=== PATIENT | female | born 1985 | race Caucasian/White ===

== ENCOUNTER 2017-10-24 16:27 | Emergency (ER) | payer OTHER ==
--- NOTE | 2017-10-24 18:08 | RAD ---
Date of service: 10/24/2017 HISTORY: back pain COMPARISON: No prior. TECHNIQUE: Chest PA and lateral FINDINGS: LUNGS: No active pulmonary disease. PLEURA: No significant pleural effusion identified. No pneumothorax apparent. CARDIOVASCULAR: Normal. OSSEOUS STRUCTURES: No significant abnormalities. VISUALIZED UPPER ABDOMEN: Normal. OTHER FINDINGS: None. IMPRESSION: No active disease.
[2017-10-24 18:13] LABS: BASO % 0.6 % (0.0-2.0); EOS # 0.2 K/uL (0.0-0.7); EOS % 2.8 % (0.0-4.0); HEMOGLOBIN 12.7 g/dL (12.0-16.0); LYMPH % 24.4 % (20.0-40.0); MEAN CELL VOLUME 82.7 fl (81.0-99.0); MEAN CORPUSCULAR HEMOGLOBIN 27.9 pg (27.0-31.0); MEAN CORPUSCULAR HGB CONC 33.7 g/dL (33.0-37.0); MEAN PLATELET VOLUME 9.6 fl (7.2-11.7); MONO # 0.4 K/uL (0.0-0.8); MONO % 5.2 % (0.0-10.0); NEUT # 5.5 K/uL (1.8-7.0); NRBC % 0.1 % (0.0-0.0); RBC 4.55 Mil/uL (3.80-5.20); RED CELL DISTRIBUTION WIDTH 16.3 % (11.5-14.5); WHITE BLOOD COUNT 8.2 K/uL (4.8-10.8)
--- NOTE | 2017-10-24 18:18 | ED PDOC ---
HPI: Back Time Seen by Provider: 10/24/17 16:42 Chief Complaint (Nursing): Back Pain Chief Complaint (Provider): back pain History Per: Patient History/Exam Limitations: no limitations Onset/Duration Of Symptoms: Days Current Symptoms Are (Timing): Still Present Quality Of Discomfort: "Pain" Additional Complaint(s): 32 year old female presents to the ED for an evaluation of right upper back pain. The pain is constant and worse when she stands. It has been present for 3- 4 weeks. Otherwise: (-) paresthesias, (-) weakness, (-) acute bowel or bladder dysfunction, (-) fever, (-) cough, (-) SOB, (-) chest pain, (-) nausea, (-) vomiting, (-) abdominal pain, (-) trauma, (-) injury, (-) urinary symptoms, (-) travel. Patient admits that she is a smoker. PMD: Driss Puri Past Medical History Reviewed: Historical Data, Nursing Documentation, Vital Signs Vital Signs: Last Vital Signs Temp 98.5 F 10/24/17 16:37 Pulse 80 10/24/17 16:37 Resp 16 10/24/17 16:37 BP 120/83 10/24/17 16:37 Pulse Ox 98 10/24/17 16:37 - Medical History PMH: Back Problems - Family History Family History: States: No Known Family Hx - Social History Current smoker - smoking cessation education provided: Yes - Home Medications Home Medications: Ambulatory Orders Medication Instructions Recorded Cyclobenzaprine [Cyclobenzaprine 10 mg PO TID PRN #15 tab 10/24/17 HCl] Naproxen 500 mg PO BID PRN #20 tablet 10/24/17 - Allergies Allergies/Adverse Reactions: Allergies Allergy/AdvReac Type Severity Reaction Status Date / Time No Known Allergies Allergy Verified 10/24/17 16:43 Review of Systems ROS Statement: Except As Marked, All Systems Reviewed And Found Negative Constitutional: Negative for: Fever Respiratory: Negative for: Cough, Shortness of Breath Gastrointestinal: Negative for: Nausea, Vomiting, Abdominal Pain Genitourinary Female: Negative for: Dysuria, Frequency, Incontinence Musculoskeletal: Positive for: Back Pain Physical Exam - Reviewed Nursing Documentation Reviewed: Yes Vital Signs Reviewed: Yes - Physical Exam Comments: GENERAL APPEARANCE: Patient is awake, alert, oriented x 3, in mild painful distress. SKIN: Warm, dry; (-) cyanosis. EYES: (-) conjunctival pallor. ENMT: Mucous membranes moist. NECK: (-) tenderness, (-) stiffness, (-) lymphadenopathy. CHEST AND RESPIRATORY: (-) rales, (-) rhonchi, (-) wheezes; breath sounds equal bilaterally. HEART AND CARDIOVASCULAR: (-) irregularity; (-) murmur, (-) gallop. ABDOMEN AND GI: Soft; (-) tenderness; (-) palpable mass. BACK: (-) paravertebral tenderness, (+) mild spasm to the R upper back, (-) direct bony tenderness, (-) deformity. EXTREMITIES: (-) deformity. Distal pulses good bilaterally. NEURO AND PSYCH: Mental status as above. Intact sensation bilaterally; normal strength in extension of the knees, plantar and dorsiflexion of the toes. - Laboratory Results Result Diagrams: 10/24/17 17:54 10/24/17 17:54 - ECG O2 Sat by Pulse Oximetry: 98 (RA) Pulse Ox Interpretation: Normal Medical Decision Making Medical Decision Making: Time: 1725 Initial Impression: back pain Initial Plan: --EKG --CMP --Troponin I --ED Urine --CBC w/ Differential --D Dimer [COAG] --PTT [COAG] --Prothrombin Time --Chest Two Views (PA/LAT) --IV Insertion --Urinalysis Uhcg (-) UA (-) EKG: NSR at 62 bpm, (-) acute ST changes, as read by JESSICA. CXR : NAD, as read by JESSICA Labs reviewed and wnl : trop (-), bnp (-). Diagnostic results discussed with the patient in great detail. Diagnosis of muscle spasm discussed with the patient in great detail. On reevaluation, patient reports improvement of symptoms, denies any CP or SOB. On exam, patient remains awake alert and oriented 3 in no acute distress. Based on history, exam and diagnostic results plan will be for outpatient follow up. Advised to follow up with primary care physician in 1-2 days without fail. Advised to take medication as prescribed. Return to the emergency room at any time for any new or worsening symptoms. Patient states she fully agrees with and understands discharge instructions. States that she agrees with the plan and disposition. Verbalized and repeated discharge instructions and plan. I have given the patient opportunity to ask any additional questions. Scribe Attestation: Documented by Linda Sotomayor, acting as a scribe for Kellie Velez PA-C Provider Scribe Attestation: All medical record entries made by the Scribe were at my direction and personally dictated by me. I have reviewed the chart and agree that the record accurately reflects my personal performance of the history, physical exam, medical decision making, and the department course for this patient. I have also personally directed, reviewed, and agree with the discharge instructions and disposition. Disposition - Clinical Impression Clinical Impression: Back pain - Patient ED Disposition Is Patient to be Admitted: No Counseled Patient/Family Regarding: Studies Performed, Diagnosis, Need For Followup, Rx Given - Disposition Disposition: Routine/Home Disposition Time: 19:00 Condition: STABLE Additional Instructions: Thank you for letting us take care of you today. You were treated for back pain. The emergency medical care you received today was directed at your acute symptoms. If you were prescribed any medication, please fill it and take as directed. It may take several days for your symptoms to resolve. Return to the Emergency Department if your symptoms worsen, do not improve, or if you have any other problems. Please contact your doctor in 2 days for re-evaluation and follow up. Bring any paperwork you were given at discharge with you along with any medications you are taking to your follow up visit. Our treatment cannot replace ongoing medical care by a primary care provider (PCP) outside of the emergency department. Thank you for allowing the [facility] team to be part of your care today. Prescriptions: Cyclobenzaprine [Cyclobenzaprine HCl] 10 mg PO TID PRN #15 tab PRN Reason: Muscle Spasm Naproxen 500 mg PO BID PRN #20 tablet PRN Reason: Pain, Moderate (4-7) Instructions: Upper Back Pain (DC) Forms: [employer] ([place])
[2017-10-24 18:34] LABS: ALB/GLOB RATIO 1.2 (1.0-2.1); ALBUMIN 4.9 g/dL (3.5-5.0); ALT/SGPT 19 U/L (9-52); AST/SGOT 24 U/L (14-36); BLOOD UREA NITROGEN 6 mg/dl (7-17); CALCIUM 9.4 mg/dL (8.4-10.2); GFR AFRICAN-AMERICAN > 60; GFR NON-AFRICAN AMERICAN > 60
[2017-10-24 18:35] LABS: INR 1.2 (0.9-1.2); PARTIAL THROMBOPLASTIN TIME 30.7 Seconds (25.6-37.1)
[2017-10-24 18:37] LABS: SQUAMOUS EPITHIAL 4 /hpf (0-5); URINE BILIRUBIN NEGATIVE (NEGATIVE); URINE BLOOD NEGATIVE (NEGATIVE); URINE CLARITY SLIGHTY-CLOUDY (Clear); URINE COLOR YELLOW (YELLOW); URINE GLUCOSE (UA) NEG (Normal); URINE LEUKOCYTE ESTERASE NEG Leu/uL (Negative); URINE PROTEIN NEGATIVE (NEGATIVE); URINE UROBILINOGEN 0.2-1.0 mg/dL (0.2-1.0)
[2017-10-24 19:31] VITALS: BP 128/72; PULSE 76; RESP 18; TEMP 98; O2SAT 99
--- NOTE | 2017-10-26 10:16 | CARD ---
APPROVED REPORT Date of service: 10/24/2017 EKG Measurement Heart [id number] <Conclusion> Normal sinus rhythm with sinus arrhythmia Normal ECG
== END 2017-10-24 19:32 | disposition home or self-care (01) ==
LOC: H.ER 16:27
DX: M54.9 Dorsalgia, unspecified (principal); F17.200 Nicotine dependence, unspecified, uncomplicated
CPT/HCPCS: 71046; 80053; 81003; 81025; 84484; 85025; 85378; 85610; 85730; 93005; 96374; 99283; J1885